=== PATIENT | male | born 1950 | race Caucasian/White ===

== ENCOUNTER 2017-02-20 08:42 | Emergency (ER) | payer OTHER, BC ==
[~2017-02-20] VITALS: Ht 167.6 cm; Wt 85.3 kg
[2017-02-20 09:38] LABS: BASOPHIL % 0.3 % (0-2); PLATELET COUNT 208 x10^3mcL (130-400); RED CELL DISTRIBUTION WIDTH 13.1 % (11.5-14.5)
[2017-02-20 09:49] LABS: CARBON DIOXIDE 27.7 mmol/L (21-32); CHLORIDE SERUM 100 mmol/L (98-107); CREATININE SERUM 0.9 mg/dL (0.7-1.3); GFR1 > 60 mL/min; GLUCOSE SERUM 167 mg/dL (74-106); POTASSIUM SERUM 3.7 mmol/L (3.5-5.1); SODIUM SERUM 138 mmol/L (136-145)
[2017-02-20 09:53] LABS: ALBUMIN 3.6 g/dL (3.4-5.0); ALKALINE PHOSPHATASE 99 U/L (46-116); ALT/SGPT 38 U/L (16-63); AST/SGOT 31 U/L (15-37); BILIRUBIN TOTAL 0.8 mg/dL (0.20-1.00); TOTAL PROTEIN, SERUM 7.7 g/dL (6.4-8.2)
[2017-02-20] MEDS ORDERED: HYDROCHLOROTH12.5 M2 (10:34)
[2017-02-20] MEDS ORDERED: LOSARTAN POTASS25 M1 (10:35)
[2017-02-20] MEDS ORDERED: ATENOLOL25 MG (10:35)
[2017-02-20 13:05] VITALS: BP 209/115
== END 2017-02-20 13:09 | disposition short-term general hospital (02) ==
LOC: ED 08:42
DX: I21.3 ST elevation (STEMI) myocardial infarction of unspecified site (principal); I10 Essential (primary) hypertension
CPT/HCPCS: 83880; Q0092